=== PATIENT | male | born 1940 | race Caucasian/White ===

== ENCOUNTER 2024-06-12 07:25 | Day surgery (SDC) | payer MEDICAID, MEDICARE, OTHER ==
[2024-06-12] MEDS ORDERED: fentaNYL 100 MCG/2 ML SDV IV ONE (07:26)
[2024-06-12] MEDS ORDERED: Midazolam 1 MG/ML 2 ML SDV IV ONE (07:26)
[2024-06-12] MEDS ORDERED: Lactated Ringers 1,000 ML IV PRN (07:30)
[2024-06-12] MEDS: Sodium Chloride 0.9% 10 ML Syringe FLUSH PRN (08:16)
[2024-06-12] MEDS: acetaZOLAMIDE 500 MG Cap.ER PO ONE (09:42)
== END 2024-06-12 10:02 | disposition home or self-care (01) ==
LOC: FB.SDS 07:25
PROVIDERS: ATTEND Ophthalmology
DX: H26.9 Unspecified cataract (principal); I10 Essential (primary) hypertension; F03.90 Unspecified dementia, unspecified severity, without behavioral disturbance, psychotic disturbance, mood disturbance, and anxiety; N40.1 Benign prostatic hyperplasia with lower urinary tract symptoms; E78.5 Hyperlipidemia, unspecified; N13.9 Obstructive and reflux uropathy, unspecified; F17.210 Nicotine dependence, cigarettes, uncomplicated; Z79.899 Other long term (current) drug therapy; Z79.82 Long term (current) use of aspirin
CPT/HCPCS: 00142; 99100; A9270-GY; J2250; J3010; J3490; V2632

== ENCOUNTER 2024-07-10 06:44 | Day surgery (SDC) | payer MEDICAID, MEDICARE ==
[2024-07-10] MEDS ORDERED: Lactated Ringers 1,000 ML IV PRN (06:45)
[2024-07-10] MEDS ORDERED: Midazolam 1 MG/ML 2 ML SDV IV ONE (06:45)
[2024-07-10] MEDS: Sodium Chloride 0.9% 10 ML Syringe FLUSH PRN (07:32)
[2024-07-10] MEDS: acetaZOLAMIDE 500 MG Cap.ER PO ONE (08:43)
== END 2024-07-10 09:14 | disposition home or self-care (01) ==
LOC: FB.SDS 06:44
PROVIDERS: ATTEND Ophthalmology
DX: H26.9 Unspecified cataract (principal); I10 Essential (primary) hypertension; F03.90 Unspecified dementia, unspecified severity, without behavioral disturbance, psychotic disturbance, mood disturbance, and anxiety; F32.A Depression, unspecified; I25.10 Atherosclerotic heart disease of native coronary artery without angina pectoris; N40.1 Benign prostatic hyperplasia with lower urinary tract symptoms; N13.8 Other obstructive and reflux uropathy; E78.5 Hyperlipidemia, unspecified; F17.210 Nicotine dependence, cigarettes, uncomplicated; Z79.899 Other long term (current) drug therapy; Z79.82 Long term (current) use of aspirin
CPT/HCPCS: 66984; A9270; J2250; J3490; V2632; 00142; 99100

== ENCOUNTER 2025-07-01 13:22 | Emergency (ER) | payer MEDICARE, MEDICAID ==
[2025-07-01] MEDS ORDERED: Sodium Chloride 0.9% 10 ML Syringe FLUSH PRN (13:42)
[2025-07-01 13:55] LABS: BASOPHILS ABSOLUTE AUTO 0.0 x10-3/uL (0.0-0.3); BASOPHILS PERCENT AUTO 0.3 % (0.3-3.8); EOSINOPHILS ABSOLUTE AUTO 0.1 x10-3/uL (0.0-0.6); EOSINOPHILS PERCENT AUTO 1.2 % (0.1-6.8); LYMPHOCYTES ABSOLUTE AUTO 1.1 x10-3/uL (0.5-4.5); LYMPHOCYTES PERCENT AUTO 19.5 % (15.8-45.3); MEAN PLATELET VOLUME 8.0 fL (6.7-11.0); MONOCYTES ABSOLUTE AUTO 0.3 x10-3/uL (0.0-1.2); MONOCYTES PERCENT AUTO 5.0 % (5.5-15.2); NEUTROPHILS ABSOLUTE AUTO 4.2 x10-3/uL (1.7-6.9); NEUTROPHILS PERCENT AUTO 74.0 % (40.3-71.8); PLATELET COUNT,PLT 160 x10(3)uL (117-477); RED BLOOD CELL COUNT 3.93 x10(6)uL (3.90-5.90); RED CELL DISTRIBUTION WIDTH 14.5 % (12.4-15.0); WHITE BLOOD CELL COUNT,WBC 5.7 x10-3/uL (3.2-10.1)
[2025-07-01 13:56] LABS: BLOOD UREA NITROGEN,BUN 20 mg/dL (7-18); CARBON DIOXIDE,CO2 28 mmol/L (21-32); CHLORIDE,CL 105 mmol/L (100-110); CREATININE 1.5 mg/dL (0.70-1.30); EST CRCL DRUG DOSING (CG) 38.53 mL/min; ESTIMATED GFR 46 mL/min (>60); GLUCOSE RANDOM 149 mg/dL (80-116); POTASSIUM,K 3.9 mmol/L (3.5-5.3); SODIUM,NA 142 mmol/L (135-145)
[2025-07-01 14:02] LABS: A/G RATIO 1.2; ALANINE AMINOTRANSFERASE,ALT 16 U/L (12-36); ASPARTATE AMNIOTRANSFERASE,AST 15 IU/L (5-25); BILIRUBIN TOTAL 0.4 mg/dL (0.1-1.3); PROTEIN TOTAL,TP 6.3 g/dL (6.0-8.0)
== END 2025-07-01 15:55 | disposition home or self-care (01) ==
LOC: FB.ED 13:22
DX: R55 Syncope and collapse (principal); R41.82 Altered mental status, unspecified; R29.6 Repeated falls; I10 Essential (primary) hypertension; I25.10 Atherosclerotic heart disease of native coronary artery without angina pectoris; E78.00 Pure hypercholesterolemia, unspecified; Z79.82 Long term (current) use of aspirin; Z79.899 Other long term (current) drug therapy
CPT/HCPCS: 70450; 71045; 80053; 84484; 85025; 96360; 99285; J7030; 93010; 99284